=== PATIENT | male | born 1965 | race Caucasian/White ===

== ENCOUNTER 2020-01-16 03:46 | Outpatient (CLI) | payer OTHER, SELFPAY ==
[2020-01-16 18:37] LABS: SARS-CoV-2 RNA PCR Negative
== END 2020-01-16 03:47 | disposition home or self-care (01) ==
LOC: ANHCOVIDDT 03:46
PROVIDERS: PCP Family Medicine; Visit Provider Internal Medicine Cardiovascular Disease
DX: Z01.812 Encounter for preprocedural laboratory examination (principal); Z20.828 Contact with and (suspected) exposure to other viral communicable diseases
CPT/HCPCS: 87635; C9803; U0003

== ENCOUNTER 2021-04-01 18:29 | Emergency (ER) | payer OTHER, SELFPAY ==
[2021-04-01 18:37] VITALS: BP 154/90; PULSE 103; RESP 16; TEMP 37.7; O2SAT 97
[2021-04-01 18:39] VITALS: BP 154/90; PULSE 103; RESP 16; TEMP 37.7; O2SAT 97
--- NOTE | 2021-04-01 19:26 | ED.URI ---
HPI - URI/Sore Throat General Chief Complaint: Upper Respiratory Infection Stated Complaint: body aches /fever Time Seen by Provider: 04/01/21 19:11 Source: patient and RN notes reviewed Mode of arrival: ambulatory Limitations: no limitations History of Present Illness HPI Narrative: Patient presents today complaining of a 2-day history of body aches, congestion and rhinorrhea. Denies cough, sore throat, fever, nausea, vomiting, diarrhea, loss of taste or smell, or any additional symptoms. He has been taking ibuprofen without relief. He has not been vaccinated against COVID-19. Patient is a smoker. Denies any history of asthma or COPD. MD elicited complaint: nasal congestion and other (Body aches) Related Data Home Medications Medication Instructions Recorded Confirmed No Home Medications 04/01/21 04/01/21 Allergies Allergy/AdvReac Type Severity Reaction Status Date / Time No Known Allergies Allergy Unverified 01/26/13 15:42 Review of Systems Review of Systems: CONSTITUTIONAL: Denies fever, chills, or sweats.+ Body aches EYES: Denies visual changes, redness, or discharge. ENT: Denies sore throat, or otalgia.+ Congestion, rhinorrhea CARDIOVASCULAR: Denies chest pain, palpitations, or edema. RESPIRATORY: Denies cough or dyspnea. GASTROINTESTINAL: Denies abdominal pain, nausea, vomiting, or diarrhea. GENITOURINARY: Denies dysuria or hematuria. SKIN: Denies rash, itching, or wounds. MUSCULOSKELETAL: Denies back pain, joint pain, or myalgia. NEUROLOGIC: Denies headache, numbness, tingling, or weakness. PSYCH: Denies depression or anxiety. PMFSH Comments At time of signature, I have reviewed and agree with nursing past medical, surgical, social and family history unless otherwise noted. Please see nursing chart for further information. There is no relevant family history pertinent to the presenting complaint Exam Narrative: GENERAL: Well-appearing, well-nourished, and in no acute distress. HEAD: Normocephalic, atraumatic. EYES: EOMI. No redness or drainage. Conjunctivae normal. ENT: Mucous membranes pink and moist. Nares clear. No rhinorrhea. TMs normal bilaterally. Throat normal. Uvula midline. NECK: Normal AROM. Supple. No lymphadenopathy. CHEST: No respiratory distress. Clear to auscultation. HEART: Regular rate and rhythm. No murmur appreciated. Normal peripheral pulses. EXTREMITIES: Normal range of motion. No edema. SKIN: Warm, dry, no rash. Capillary refill normal. Normal skin turgor. NEURO: No focal deficits. Alert and oriented x3. Gait steady. PSYCH: Normal affect. No signs of depression or anxiety. Course Vital Signs Vital signs: Vital Signs Temperature 99.8 F H 04/01/21 18:37 Pulse Rate 103 H 04/01/21 18:37 Respiratory Rate 16 04/01/21 18:37 Blood Pressure 154/90 H 04/01/21 18:37 Pulse Oximetry 97 04/01/21 18:37 Temperature 99.8 F H 04/01/21 18:39 Pulse Rate 103 H 04/01/21 18:39 Respiratory Rate 16 04/01/21 18:39 Blood Pressure 154/90 H 04/01/21 18:39 Pulse Oximetry 97 04/01/21 18:39 Reviewed. Pt has been instructed to follow up with his PCP regarding his elevated blood pressure today. MDM - URI/Sore Throat Differential Diagnosis Differential diagnosis: Likely upper respiratory infection, viral infection, influenza and other (Strep throat, COVID-19) Lab Data Attestation: I reviewed the patient's lab results. Labs: Lab Results 04/01/21 Range/Units 18:48 POC SARS CoV-2 Ag Positive (Negative) Influenza A Screen Negative Reference Range: Negative Influenza B Screen Negative Reference Range: Negative Strep Screen Presumptive Negative *(Reference Range: Negative)* Strep Screen Presumptive Negative *(Reference Range: Negativ
== END 2021-04-01 19:33 | disposition home or self-care (01) ==
PROVIDERS: Emergency Provider Nurse Practitioner
DX: U07.1 COVID-19 (principal)
CPT/HCPCS: 87081; 87426; 87804; 87880; 99213; C9803; G0463

== ENCOUNTER 2025-05-12 19:39 | Emergency (ER) | payer OTHER, SELFPAY ==
--- NOTE | ~2025-05-12 | XR_ITS ---
Examination: XR elbow LT min 3V Clinical History: fall-elbow injury-traumatic bursitis Comparison: None Technique: Left elbow Findings/impression: 1. No fracture or dislocation left elbow. Reviewed, dictated and finalized at location [facility] [employer]
--- NOTE | 2025-05-12 19:40 | ED.FALL ---
HPI - Fall General Chief Complaint: Extremity Injury, Upper Stated Complaint: fall from ladder Time Seen by Provider: 05/12/25 19:39 Source: patient Mode of arrival: ambulatory Limitations: no limitations History of Present Illness HPI Narrative: Shawn is a 59-year-old male patient presenting to the clinic today with complaints of falling backwards when coming down a ladder. He reports he missed the bottom step and became unbalanced and fell backwards injuring his left elbow. He denies hitting his head or any loss of consciousness. He denies any neck pain. Related Data Home Medications ?Medication ?Instructions ?Recorded ?Confirmed ?Last Taken ?Type brimonidine 0.2 % eye drops drp 05/12/25 Unknown History Allergies Allergy/AdvReac Type Severity Reaction Status Date / Time No Known Allergies Allergy Verified 05/12/25 19:50 Review of Systems Review of Systems: Pertinent positives per HPI. Patient denies any fever, chills, rash, headache, visual changes, dizziness, cough, runny nose, sore throat, shortness of breath, chest pain, palpitations, nausea, vomiting, diarrhea, constipation, abdominal pain, or any urinary issues. PMFSH Comments At the time of my signature, I reviewed and agree with the nursing past medical, surgical, social, and family history. There is no relevant family history pertinent to the patient complaint. Exam Narrative: General: Well-developed, morbidly obese, in no apparent distress Head: Normocephalic, atraumatic. Cardio: Regular rate and rhythm, s1 and s2 normal, no murmur appreciated. Resp: Clear to auscultation bilaterally, no rhonchi, rales, wheezing or rubs. Musculoskeletal: No deformity, tender to palpation over the left elbow with localized swelling(likely traumatic bursitis), grossly normal range of motion, muscle strength strong and equal, peripheral pulse strong, no edema, no cyanosis, normal gait and station Course Course Level of Care: Express Care Visit Vital Signs Vital signs: Vital Signs Temperature 36.7 C 05/12/25 19:49 Pulse Rate 104 H 05/12/25 19:49 Respiratory Rate 20 05/12/25 19:49 Blood Pressure 160/91 H 05/12/25 19:49 Pulse Oximetry 94 05/12/25 19:49 Oxygen Delivery Room Air 05/12/25 19:49 Temperature 36.7 C 05/12/25 19:49 Pulse Rate 104 H 05/12/25 19:49 Respiratory Rate 20 05/12/25 19:49 Blood Pressure 160/91 H 05/12/25 19:49 Pulse Oximetry 94 05/12/25 19:49 Oxygen Delivery Room Air 05/12/25 19:49 [facility] MDM Narrative Medical decision making narrative: At the time of visit patient is resting comfortably on the exam table. Patient appears to be nontoxic. Complaints of falling backwards when coming down a ladder. He reports he missed the bottom step and became unbalanced and fell backwards injuring his left elbow. He denies hitting his head or any loss of consciousness. He denies any neck pain or back pain. On exam there is no deformity, has tenderness to palpation over the left elbow with localized swelling(likely traumatic bursitis), grossly normal range of motion. X-ray of the left elbow was ordered. Diagnostics: X-ray of the left elbow was performed. No obvious sign of fracture or malalignment on x-rays. Plan: I suspect patient has left elbow traumatic bursitis. Robbie wrap an ice pack was given to the patient. Arm sling was also given. Will call patient tomorrow with final x-ray results. Supportive measures were discussed with the patient and they voiced understanding discharge instructions and agrees to treatment plan. Return precautions reviewed Differential Diagnosis Differential Diagnosis: Differential diagnostic considerations for fall injuries include syncope, concussion with loss of consciousness, concussion without loss of consciousness, vertebral fracture, extremity fracture/dislocation. Discharge Plan Discharge Clinical Impression: Bursitis due to trauma, Elbow pain, left Patient Disposition: Home Condition: Stable Instructions: Antibiotic Form, Elbow Bursitis (ED), Swollen Joint (ED) Additional Instructions: No acute fracture or malalignment seen on x-rays. Awaiting radiologist's review-will contact you tomorrow and go over your test results Rest, ice, elevate, and wear robbie wrap as directed Wear arm sling as discussed Tylenol/motrin for pain as discussed. Follow up with your PCP if symptoms persist more than 1 week. Patient Language: Samoan Prescriptions: No Action brimonidine 0.2 % drops Follow-up/Referrals: UNKNOWN,DOCTOR [Non-Staff] Time of Disposition: 19:59 Quality NIHSS Nursing Documentation ED NIHSS nursing documentation: reviewed/agree
[2025-05-12 19:49] VITALS: BP 160/91; PULSE 104; RESP 20; TEMP 36.7; O2SAT 94
== END 2025-05-12 20:08 | disposition home or self-care (01) ==
PROVIDERS: Emergency Provider Nurse Practitioner Family
DX: M70.32 Other bursitis of elbow, left elbow (principal); I25.10 Atherosclerotic heart disease of native coronary artery without angina pectoris
CPT/HCPCS: 73080; 99213; A4565; G0463